=== PATIENT | female | born 1990 | race Caucasian/White ===

== ENCOUNTER 2023-11-14 06:37 | Day surgery (SDC) | payer OTHER ==
[~2023-11-14] VITALS: Ht 157.5 cm; Wt 72.6 kg
[2023-11-14 07:27] LABS: HCG,QUAL RESULT NEGATIVE (NEGATIVE)
[2023-11-14] MEDS ORDERED: DIPHENHYDRAMINE INJ 50 MG/ML VIAL ONE (07:40)
[2023-11-14] MEDS: MIDAZOLAM HCL 5 MG/5 ML VIAL ONE (09:42)
[2023-11-14] MEDS: fentaNYL CITRATE/PF 100 MCG/2 ML AMP ONE (09:44)
[2023-11-14] MEDS ORDERED: methylPREDNISolone ACETATE 40 MG/ML ONE (10:00)
[2023-11-14] MEDS ORDERED: NORMAL SALINE 10 ML VIAL ONE (10:00)
[2023-11-14] MEDS ORDERED: LIDOCAINE 2%, 20 ML MDV ONE (10:00)
[2023-11-14] MEDS ORDERED: iopamidoL 50 ML VIAL IV ONE (10:00)
[2023-11-14 12:59] VITALS: O2SAT 99
[2023-11-14 16:13] VITALS: BP_SYST 119; PULSE 65; RESP 20
== END 2023-11-14 10:30 | disposition home or self-care (01) ==
LOC: SDS 06:37 → SMU 06:39 → SDS 10:30
PROVIDERS: ATTEND Internal Medicine
DX: M51.16 Intervertebral disc disorders with radiculopathy, lumbar region (principal); M51.9 Unspecified thoracic, thoracolumbar and lumbosacral intervertebral disc disorder; I10 Essential (primary) hypertension; K21.9 Gastro-esophageal reflux disease without esophagitis; Z98.818 Other dental procedure status; Z79.899 Other long term (current) drug therapy
CPT/HCPCS: 62323; 84703; J1030; J2250; J3010; Q9967; 76000; J1200; J2001